=== PATIENT | male | born 1935 | race Caucasian/White ===

== ENCOUNTER 2023-04-18 11:38 | Inpatient (IN) | payer MEDICARE, OTHER ==
[2023-04-18 12:25] LABS: #Eosinphils 0.2 thou/uL (0.0-0.7); #Monocytes 0.6 thou/uL (0.11-0.59); #Neutrophils 2.8 thou/uL (1.40-6.50); %Basophils 0.5 % (0.0-1.0); %Eosinophils 2.9 % (0.0-10.0); %Lymphocytes 56.1 % (21.0-51.0); %Monocytes 6.9 % (0.0-10.0); %Neutrophils 33.4 % (42.0-75.0); Hematocrit 32.8 % (42.0-52.0); Hemoglobin 10.3 g/dL (14.0-18.0); Mean Corpuscular HGB CONC 31.4 g/dL (32.0-36.0); Mean Corpuscular Hemoglobin 30.8 pg (27.0-31.0); Mean Corpuscular Volume 98.2 fl (78.0-98.0); Mean Platelet Volume 9.6 fL (7.4-10.4); Platelet Count 192 10x3/uL (130-400); RBC Distribution Width 14.5 % (11.5-14.5); Red Blood Cell (RBC) Count 3.34 mill/uL (4.70-6.10); White Blood Cell (WBC) Count 8.4 10x3/uL (4.8-10.8)
[2023-04-18 12:44] LABS: ALT (SGPT) 17 U/L (8-55); AST (SGOT) 16 U/L (5-34); Albumin 3.4 g/dL (3.4-4.8); Alkaline Phosphatase 132 U/L (40-110); Anion Gap 12 mmol/L (10-20); BUN (Urea Nitrogen) 34 mg/dL (8.4-25.7); Bilirubin, Total 0.2 mg/dL (0.2-1.2); Calc. Creatinine Clearance 0 mL/min (70-130); Calcium 7.7 mg/dL (7.8-10.44); Carbon Dioxide 24 mmol/L (23-31); Chloride 112 mmol/L (98-107); Estimated GFR 42; Globulin 2.1 g/dL (2.4-3.5); Glucose 101 mg/dL (83-110); Potassium 4.7 mmol/L (3.5-5.1); Protein, Total 5.5 g/dL (5.8-8.1); Sodium 143 mmol/L (136-145)
[2023-04-18 12:47] LABS: Troponin I 0.014 ng/mL (< 0.028)
[2023-04-18 12:51] LABS: INR-International Normal Ratio 1.1; Prothrombin Time 14.7 sec (12.0-14.7)
[2023-04-18 12:52] LABS: PTT 29.6 sec (22.9-36.1)
[2023-04-18] MEDS ORDERED: HYDROcodone/Acetaminophen 5/325 mg Tablet PO PRN (15:29)
[2023-04-18] MEDS ORDERED: Ondansetron PF 4 MG/2 ML Vial IVP PRN (15:29)
[2023-04-18] MEDS ORDERED: Bisacodyl 5 MG TAB PO PRN (15:29)
[2023-04-18] MEDS ORDERED: Acetaminophen 325 MG TAB PO PRN (15:29)
[2023-04-18 15:41] VITALS: BMI 26.4
[2023-04-18 16:16] LABS: Troponin I 0.011 ng/mL (< 0.028)
[2023-04-18 18:49] LABS: Troponin I 0.015 ng/mL (< 0.028)
[2023-04-18] MEDS: Gabapentin 400 MG CAP PO SCH (20:12)
[2023-04-18] MEDS: HYDROcodone/Acetaminophen 5/325 mg Tablet PO PRN (20:14)
[2023-04-19 05:16] LABS: Anion Gap 13 mmol/L (10-20); BUN (Urea Nitrogen) 32 mg/dL (8.4-25.7); Calc. Creatinine Clearance 47 mL/min (70-130); Carbon Dioxide 19 mmol/L (23-31); Chloride 113 mmol/L (98-107); Estimated GFR 51; Glucose 77 mg/dL (83-110); Potassium 5.3 mmol/L (3.5-5.1); Sodium 140 mmol/L (136-145)
[2023-04-19 06:11] LABS: #Basophils 0.1 thou/uL (0.0-0.2); #Eosinphils 0.4 thou/uL (0.0-0.7); #Monocytes 0.8 thou/uL (0.11-0.59); #Neutrophils 2.3 thou/uL (1.40-6.50); %Basophils 0.6 % (0.0-1.0); %Eosinophils 5.1 % (0.0-10.0); %Monocytes 8.9 % (0.0-10.0); %Neutrophils 27.2 % (42.0-75.0); Hemoglobin 10.5 g/dL (14.0-18.0); Mean Corpuscular HGB CONC 31.8 g/dL (32.0-36.0); Mean Corpuscular Hemoglobin 31.1 pg (27.0-31.0); Mean Corpuscular Volume 97.6 fl (78.0-98.0); Mean Platelet Volume 9.2 fL (7.4-10.4); Platelet Count 177 10x3/uL (130-400); RBC Distribution Width 14.4 % (11.5-14.5); Red Blood Cell (RBC) Count 3.38 mill/uL (4.70-6.10); White Blood Cell (WBC) Count 8.4 10x3/uL (4.8-10.8)
[2023-04-19] MEDS: Tamsulosin HCl 0.4 MG CAP PO SCH (09:17)
[2023-04-19] MEDS: Phenytoin Extended Release 100 MG CAP PO SCH (09:17)
[2023-04-19] MEDS: Aspirin 81 mg Enteric Coated Tablet PO SCH (09:17)
[2023-04-19] MEDS: Gabapentin 400 MG CAP PO SCH ×2 (09:17→21:44)
[2023-04-19] MEDS ORDERED: Non-Formulary Item 1 EACH (Vit A/Vit C/Vit E/Zinc/Copper [Preservision Areds] 1 TABLET Ta PO SCH (21:00)
[2023-04-19] MEDS ORDERED: Atorvastatin Calcium 40 MG TAB PO SCH (21:00)
[2023-04-19] MEDS ORDERED: Amlodipine 5 MG TAB PO SCH (21:00)
[2023-04-19] MEDS ORDERED: Gabapentin 400 MG CAP PO SCH (21:00)
[2023-04-19] MEDS ORDERED: Tamsulosin HCl 0.4 MG CAP PO SCH (21:00)
[2023-04-19] MEDS: Multivitamin W/ Minerals 1 TAB PO SCH (21:44)
[2023-04-19] MEDS: Atorvastatin Calcium 40 MG TAB PO SCH (21:44)
[2023-04-20] MEDS: traMADol HCl 50 MG TAB PO PRN ×2 (05:27→20:57)
[2023-04-20 05:30] LABS: #Basophils 0.1 thou/uL (0.0-0.2); #Eosinphils 0.5 thou/uL (0.0-0.7); #Monocytes 0.8 thou/uL (0.11-0.59); #Neutrophils 2.4 thou/uL (1.40-6.50); %Basophils 0.7 % (0.0-1.0); %Eosinophils 5.7 % (0.0-10.0); %Lymphocytes 56.2 % (21.0-51.0); %Monocytes 9.2 % (0.0-10.0); Hematocrit 36.7 % (42.0-52.0); Hemoglobin 11.8 g/dL (14.0-18.0); Mean Corpuscular HGB CONC 32.2 g/dL (32.0-36.0); Mean Corpuscular Hemoglobin 31.1 pg (27.0-31.0); Mean Corpuscular Volume 96.8 fl (78.0-98.0); Mean Platelet Volume 9.7 fL (7.4-10.4); Platelet Count 208 10x3/uL (130-400); RBC Distribution Width 14.4 % (11.5-14.5); Red Blood Cell (RBC) Count 3.79 mill/uL (4.70-6.10); White Blood Cell (WBC) Count 8.7 10x3/uL (4.8-10.8)
[2023-04-20 06:03] LABS: Anion Gap 11 mmol/L (10-20); BUN (Urea Nitrogen) 31 mg/dL (8.4-25.7); Calc. Creatinine Clearance 46 mL/min (70-130); Calcium 8.4 mg/dL (7.8-10.44); Carbon Dioxide 25 mmol/L (23-31); Chloride 111 mmol/L (98-107); Estimated GFR 50; Glucose 83 mg/dL (83-110); Potassium 4.5 mmol/L (3.5-5.1); Sodium 142 mmol/L (136-145)
[2023-04-20] MEDS: Aspirin 81 mg Enteric Coated Tablet PO SCH (08:43)
[2023-04-20] MEDS: CeleCOXIB 100 MG CAP PO SCH (08:44)
[2023-04-20] MEDS: Gabapentin 400 MG CAP PO SCH ×2 (08:45→20:56)
[2023-04-20] MEDS: Phenytoin Extended Release 100 MG CAP PO SCH (08:45)
[2023-04-20] MEDS: Primidone 50 MG TAB PO SCH (08:46)
[2023-04-20] MEDS: Tamsulosin HCl 0.4 MG CAP PO SCH (08:46)
[2023-04-20] MEDS: HYDROcodone/Acetaminophen 5/325 mg Tablet PO PRN (08:47)
[2023-04-20] MEDS ORDERED: Aspirin 81 mg Enteric Coated Tablet PO SCH (09:00)
[2023-04-20] MEDS ORDERED: Phenytoin Extended Release 100 MG CAP PO SCH (09:00)
[2023-04-20] MEDS: hydrALAZINE 25 MG TAB PO SCH ×3 (10:31→20:56)
[2023-04-20] MEDS: Multivitamin W/ Minerals 1 TAB PO SCH (20:56)
[2023-04-20] MEDS: Atorvastatin Calcium 40 MG TAB PO SCH (20:56)
[2023-04-21] MEDS: traMADol HCl 50 MG TAB PO PRN (03:30)
[2023-04-21 08:14] VITALS: TEMP 97.3
[2023-04-21 08:22] VITALS: BP 171/81
[2023-04-21] MEDS ORDERED: hydrALAZINE 25 MG TAB PO SCH (09:00)
[2023-04-21] MEDS: Phenytoin Extended Release 100 MG CAP PO SCH (09:04)
[2023-04-21] MEDS: Gabapentin 400 MG CAP PO SCH (09:05)
[2023-04-21] MEDS: Tamsulosin HCl 0.4 MG CAP PO SCH (09:06)
[2023-04-21] MEDS: Aspirin 81 mg Enteric Coated Tablet PO SCH (09:07)
[2023-04-21] MEDS: Primidone 50 MG TAB PO SCH (09:07)
[2023-04-21] MEDS: CeleCOXIB 100 MG CAP PO SCH (09:07)
== END 2023-04-21 10:48 | disposition home or self-care (01) | DRG 312 ==
LOC: ERS 11:38 → 2SW 13:29 → OBSVTOIN 04-19 12:52
PROVIDERS: ADMIT Internal Medicine; ATTEND Internal Medicine
DX: R55 Syncope and collapse (principal); E87.20 Acidosis, unspecified; N17.9 Acute kidney failure, unspecified; N40.0 Benign prostatic hyperplasia without lower urinary tract symptoms; N18.30 Chronic kidney disease, stage 3 unspecified; G40.909 Epilepsy, unspecified, not intractable, without status epilepticus; E78.5 Hyperlipidemia, unspecified; I44.0 Atrioventricular block, first degree; I12.9 Hypertensive chronic kidney disease with stage 1 through stage 4 chronic kidney disease, or unspecified chronic kidney disease; I25.10 Atherosclerotic heart disease of native coronary artery without angina pectoris; G89.29 Other chronic pain; Z96.652 Presence of left artificial knee joint; Z90.49 Acquired absence of other specified parts of digestive tract; Z90.5 Acquired absence of kidney; Z98.890 Other specified postprocedural states; Z79.82 Long term (current) use of aspirin; Z79.899 Other long term (current) drug therapy
CPT/HCPCS: 36415; 71045; 80048; 80053; 83605; 83880; 84484; 85025; 85610; 85730; 93005; 93306; 94760; G0378